=== PATIENT | female | born 1945 | race Caucasian/White ===

== ENCOUNTER 2019-02-26 12:21 | Emergency (ER) | payer MEDICARE, OTHER ==
[~2019-02-26] VITALS: Ht 162.6 cm; Wt 59.0 kg
--- NOTE | 2019-02-26 12:41 | ED Upper Extremity ---
General Chief Complaint: Laceration Stated Complaint: RT ARM INJURY - SCRAPPED SKIN OFF THE TOP OF ARM Nursing Triage Note: ARRIVED VIA AMB TO ROOM 02. STATES SHE SCRAPED HER ARM ABOUT 2 HOURS AGO CAUSING A LARGE SKIN TEAR. Nursing Sepsis Screen: No Definite Risk Source: patient Exam Limitations: no limitations History of Present Illness Date Seen by Provider: Feb 26, 2019 Time Seen by Provider: 12:38 Initial Comments Patient scraped her left forearm against a rail this morning around 10 a.m. She sustained a skin tear. She called her daughter and bandaged it but daughter thought it needed to be evaluated because it was large. Allergies and Home Medications Allergies Uncoded Allergies: ALL PAIN MEDS (Allergy, Unknown, 02/26/19) Patient Home Medication List Home Medication List Reviewed: Yes Review of Systems Constitutional: no symptoms reported Respiratory: short of breath Cardiovascular: no symptoms reported Skin: see HPI All Other Systems Reviewed Negative Unless Noted: Yes Past Lcysqjf-Ldbmuu-Bjagsr Hx Patient Social History Recent Foreign Travel: No Contact w/Someone Who Travel: No Recent Infectious Disease Expo: No Physical Exam Vital Signs Vital Signs - First Documented 02/26/19 12:25 Temp 98.0 Pulse 78 Resp 16 B/P (MAP) 156/104 (121) Pulse Ox 93 O2 Delivery Room Air Capillary Refill : Less Than 3 Seconds Height, Weight, BMI Height: 5'4.00" Weight: 130lbs. oz. 58.975776az; BMI Method:Stated General Appearance: WD/WN, no apparent distress Neck: supple Cardiovascular: regular rate, rhythm Respiratory: decreased breath sounds Elbow/Forearm: ecchymosis (there is a large skin tear over the dorsal aspect of the left mid forearm. It measures about 7 cm long.) Progress/Results/Core Measures Results/Orders My Orders Orders - IQRA HULL MD Wound Dressing-Ed (02/26/19 12:42) Vital Signs/I&O 02/26/19 12:25 Temp 98.0 Pulse 78 Resp 16 B/P (MAP) 156/104 (121) Pulse Ox 93 O2 Delivery Room Air Blood Pressure Mean: 121 Departure Impression Primary Impression: Skin tear of forearm without complication Disposition: 01 HOME, SELF-CARE Condition: Stable Departure-Patient Inst. Decision time for Depature: 12:41 Referrals: [facility] (PCP/Family) Primary Care Physician Patient Instructions: SKIN AVULSION Add. Discharge Instructions: Keep bandage on for the next 4-5 days. Keep arm elevated as much as possible. All discharge instructions reviewed with patient and/or family. Voiced understanding. IQRA HULL MD Feb 26, 2019 12:41
[2019-02-26 13:20] VITALS: BP 163/61
--- NOTE | 2019-02-26 13:20 | NUR ---
Consent signed for Tdap injection.
[2019-02-26] MEDS ORDERED: TETANUS,DIPTH,PERTUSS P/F (BOOSTRIX) 0.5 ML VIAL IM ONE (13:30)
== END 2019-02-26 13:20 | disposition home or self-care (01) ==
LOC: EDUNIT# 12:21 → ER FS 12:23
DX: S51.812A Laceration without foreign body of left forearm, initial encounter (principal); Z88.8 Allergy status to other drugs, medicaments and biological substances; W22.09XA Striking against other stationary object, initial encounter
CPT/HCPCS: 90715; 99284

== ENCOUNTER → 2021-02-21 | Outpatient (CLI) | payer MEDICARE ==
--- NOTE | 2021-02-21 17:53 | Diagnostic Imaging Report ---
INDICATION: Right foot, pain. EXAMINATION: Three views were obtained. FINDINGS: The alignment is normal. There is no fracture or dislocation. There is no radiographic evidence of osteomyelitis. There appears to be some soft tissue swelling along the ball of foot. IMPRESSION: Soft tissue swelling, however, no radiographic evidence of osteomyelitis. Dictated by: Dictated on workstation # [id number]
== END ==
LOC: RAD FS 14:18
PROVIDERS: ATTEND Family Medicine
DX: L97.511 Non-pressure chronic ulcer of other part of right foot limited to breakdown of skin (principal)
CPT/HCPCS: 73630

== ENCOUNTER → 2021-02-28 | Outpatient (CLI) | payer MEDICARE | LOC: WOUNDCARE 10:03 | PROVIDERS: ATTEND Orthopaedic Surgery Hand Surgery | DX: I96 Gangrene, not elsewhere classified (principal); L97.512 Non-pressure chronic ulcer of other part of right foot with fat layer exposed; L97.522 Non-pressure chronic ulcer of other part of left foot with fat layer exposed; F17.218 Nicotine dependence, cigarettes, with other nicotine-induced disorders | CPT/HCPCS: 99215 ==

== ENCOUNTER → 2021-03-13 | Outpatient (CLI) | payer MEDICARE | LOC: WOUNDCARE 10:37 | PROVIDERS: ATTEND Surgery | DX: L97.512 Non-pressure chronic ulcer of other part of right foot with fat layer exposed (principal); L97.522 Non-pressure chronic ulcer of other part of left foot with fat layer exposed; I70.235 Atherosclerosis of native arteries of right leg with ulceration of other part of foot; T65.222A Toxic effect of tobacco cigarettes, intentional self-harm, initial encounter; L03.115 Cellulitis of right lower limb; I96 Gangrene, not elsewhere classified; F17.218 Nicotine dependence, cigarettes, with other nicotine-induced disorders | CPT/HCPCS: 99214 ==

== ENCOUNTER → 2021-03-19 | Outpatient (CLI) | payer MEDICARE ==
[~2021-03-19] MED LIST: CATHETER FLUSH 10 ML SYR IV PRN; HOLD METFORMIN - RECEIVED CONTRAST 20 ML VIAL IV SCH; IOHEXOL 350 MG/ML 100 ML (OMNIPAQUE 350) VIAL IV ONE; NS 100 ML (IVPB) BAG IV ONE
--- NOTE | 2021-03-19 21:13 | Diagnostic Imaging Report ---
INDICATION: Peripheral vascular disease, right foot wound. CTA of the aorta and pelvis and lower extremities was performed with IV contrast bolus and axial slices and 3-D reconstructions. Dose reduction protocol was used. Visualized portions of the lung bases are clear. There were no pleural fluid collections. There is no free intraperitoneal air. The liver shows diffuse fatty infiltration with no focal lesion. The patient has had a prior cholecystectomy. The spleen, adrenals, and pancreas appear normal. The kidneys bilaterally showed no hydronephrosis. There is no retroperitoneal mass or adenopathy. There is no ascites or abnormal fluid collection. Visualized bowel loops are not obstructed. There is no soft tissue mass or hematoma in the lower extremities. CTA images demonstrate the abdominal aorta to be diffusely atherosclerotic with diffuse calcific plaquing. The celiac trunk is patent and without stenosis. The SMA shows a focal stenosis of about 70% proximally, and then the SMA trunk shows diffuse plaquing. The renal arteries bilaterally are patent, there is high-grade stenosis of the origin of the right renal artery and moderate to severe stenosis of the left renal artery. The inferior mesenteric artery is occluded. There is severe plaquing at the aortic bifurcation with bilateral common iliac artery origin high-grade stenosis. The common iliac arteries throughout the remainder of their course show moderate plaquing. There is a stent in place at the right distal common iliac artery and proximal external iliac artery. The external iliac artery on the right side shows diffuse marked disease, the left external iliac artery shows diffuse plaquing with long segment 50% narrowing. The internal iliac arteries are occluded on both sides and then refill from collaterals. The common femoral arteries on both sides show moderate plaquing but are patent. The profunda femoris artery is patent on each side. The right SFA is occluded proximally, distal right SFA stent is occluded. There is some collateral refilling at the popliteal artery which is diffusely small in disease. The left SFA is diffusely somewhat small with diffuse plaquing. The left popliteal artery shows diffuse high-grade plaquing with focal stenosis above the knee which appears significant. Right popliteal artery is patent. The right anterior tibial artery and peroneal artery are patent, the right posterior tibial artery appears to occlude proximally. The left peroneal artery is patent. The anterior tibial artery and posterior tibial artery appear to be intermittently occluded, distal imaging is limited by dilution. IMPRESSION: Extensive peripheral vascular disease with multilevel disease as described above. Consider angiography if clinically warranted. Dictated by: Dictated on workstation # [id number]
== END ==
LOC: RAD 15:20
PROVIDERS: ATTEND Surgery
DX: I70.235 Atherosclerosis of native arteries of right leg with ulceration of other part of foot (principal); I70.1 Atherosclerosis of renal artery; I70.8 Atherosclerosis of other arteries; K76.0 Fatty (change of) liver, not elsewhere classified
CPT/HCPCS: 75635

== ENCOUNTER → 2021-03-19 | Outpatient (CLI) | payer MEDICARE | LOC: WOUNDCARE 14:29 | PROVIDERS: ATTEND Surgery | DX: L97.512 Non-pressure chronic ulcer of other part of right foot with fat layer exposed (principal); L97.522 Non-pressure chronic ulcer of other part of left foot with fat layer exposed; I70.235 Atherosclerosis of native arteries of right leg with ulceration of other part of foot; T65.222A Toxic effect of tobacco cigarettes, intentional self-harm, initial encounter; L03.115 Cellulitis of right lower limb; I96 Gangrene, not elsewhere classified; F17.218 Nicotine dependence, cigarettes, with other nicotine-induced disorders | CPT/HCPCS: 99214 ==

== ENCOUNTER 2021-06-25 10:00 | Inpatient (IN) | payer MEDICARE ==
[~2021-06-25] VITALS: Ht 152.4 cm; Wt 55.6 kg
[2021-06-25] MEDS ORDERED: LEVO125T6 PO (10:35)
[2021-06-25] MEDS ORDERED: AMLO-250 PO (10:35)
[2021-06-25] MEDS ORDERED: IBUP-2473 PO (10:35)
[2021-06-25] MEDS ORDERED: PRD20T PO (10:35)
[2021-06-25] MEDS ORDERED: METO50TA15 PO (10:35)
[2021-06-25] MEDS ORDERED: CEFP200T2 PO (10:35)
[2021-06-25] MEDS ORDERED: APIX2.5T PO (10:35)
[2021-06-25] MEDS ORDERED: ALPR1TAB7 PO (10:35)
[2021-06-25] MEDS ORDERED: MUPI22OI2 TP (10:35)
[2021-06-25] MEDS ORDERED: FURO40TA4 PO (10:35)
[2021-06-25] MEDS ORDERED: CLOP75TA69 PO (10:35)
[2021-06-25] MEDS ORDERED: MTC10T PO (10:35)
[2021-06-25] MEDS ORDERED: LOSA25TA41 PO (10:35)
[2021-06-25] MEDS ORDERED: CALCIUM CARBONATE 500 MG (TUMS) TAB.CHEW PO PRN (17:15)
[2021-06-25] MEDS ORDERED: ALPRAZolam 0.25 MG (XANAX) TAB PO PRN (17:15)
[2021-06-25] MEDS ORDERED: LOPERAMIDE 2 MG (IMODIUM) TABLET PO PRN (17:15)
[2021-06-25] MEDS ORDERED: MELATONIN 3 MG TABLET PO PRN (17:15)
[2021-06-25] MEDS ORDERED: ACETAMINOPHEN 325 MG TABLET PO PRN (17:15)
[2021-06-25] MEDS ORDERED: LACTULOSE SYRUP 10GM/15ML (ENULOSE) 30ML UDC PO PRN (17:15)
[2021-06-25] MEDS ORDERED: DOCUSATE SODIUM 100 MG (COLACE) CAP PO PRN (17:15)
[2021-06-25] MEDS ORDERED: FLEET ENEMA ADULT 1 EA BTL PR PRN (17:15)
[2021-06-25] MEDS ORDERED: ONDANSETRON 4 MG (ZOFRAN) ORAL DISSOLVE TAB PO PRN (17:15)
[2021-06-25] MEDS ORDERED: NALOXONE 0.4 MG/ML 1 ML (NARCAN) VIAL IV PRN (17:15)
[2021-06-25] MEDS ORDERED: BISACODYL 10 MG SUPP (DULCOLAX) PR PRN (17:15)
[2021-06-25] MEDS ORDERED: guaiFENesin/CODEINE (ROBITUSSIN AC) 10ML UDC PO PRN (17:15)
[2021-06-25] MEDS ORDERED: diphenhydrAMINE 25 MG TAB (BENADRYL) PO PRN (17:15)
[2021-06-25 17:30] VITALS: BP 120/58
[2021-06-25] MEDS ORDERED: METOCLOPRAMIDE 10 MG (REGLAN) TAB PO PRN (18:15)
[2021-06-25] MEDS ORDERED: ALPRAZolam 1 MG (XANAX) TAB PO PRN ×2 (18:15→21:00)
[2021-06-25] MEDS: polyethylene glycoL POWDER 17 GM (MIRALAX) PACK PO SCH (19:50)
[2021-06-25 20:00] VITALS: BP 133/79
[2021-06-25] MEDS: RT-ALBUTEROL/IPRATROPIUM 3 ML (DUONEB) VIAL INH SCH (21:12)
--- NOTE | 2021-06-25 21:35 | PM&R Post Admission Assessment ---
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 On 06/18/21 CXR showed no air space opacity or effusion. Renal ultrasound showed 60% stenosis of the left renal artery with elevated velocity of 255. Overall she is here for severe disability and will regain function in order to return to independent living. Past Ylrpukg-Xeuzpj-Wknelq Hx Past Med/Social Hx: Reviewed Nursing Past Med/Soc Hx, Reviewed and Corrections made Patient Social History Marrital Status: single Employed/Student: retired Alcohol Use: Regular Use Smoking Status: Current Everyday Smoker Recent Hopitalizations: No Immunizations Up To Date Tetanus Booster (TDap): Less than 5yrs Seasonal Allergies Seasonal Allergies: No Past Medical History Surgeries: Gallbladder Respiratory: COPD, Pneumonia Cardiac: Hypertension Neurological: Neuropathy Restless leg syndrome Gastrointestinal: Gastroesophageal Reflux Musculoskeletal: Arthritis Endocrine: Hypothyroidsim Cancer: Breast PM&R Allergy/Meds/Data Review Allergies Uncoded Allergies: ALL PAIN MEDS (Allergy, Unknown, 02/26/19) Current Medications Current Medications Reviewed Laboratory Data Reviewed Review of Systems Constitutional: see HPI, malaise, weakness EENTM: no symptoms reported Respiratory: dyspnea on exertion, short of breath Cardiovascular: no symptoms reported Gastrointestinal: no symptoms reported Genitourinary: no symptoms reported Musculoskeletal: no symptoms reported Skin: no symptoms reported Psychiatric/Neurological: Depressed All Other Systems Reviewed Negative Unless Noted: Yes Physical Exam Physical Exam Vital Signs Vital Signs - First Documented 06/25/21 17:30 Temp 36.0 Pulse 97 Resp 20 B/P (MAP) 120/58 (78) Pulse Ox 96 O2 Delivery Nasal Cannula O2 Flow Rate 3.00 Capillary Refill : Height, Weight, BMI Height: 5'4.00" Weight: 130lbs. oz. 58.172848wa; 23.33 BMI Method:Stated General Appearance: No Apparent Distress, WD/WN, Chronically ill, Other (Sleepy) Eyes: Bilateral Eye Normal Inspection, Bilateral Eye PERRL HEENT: PERRL/EOMI, Normal ENT Inspection, Pharynx Normal Neck: Full Range of Motion, Normal Inspection, Non Tender, Supple, Carotid Bruit Respiratory: Chest Non Tender, No Accessory Muscle Use, No Respiratory Distress, Decreased Breath Sounds, Wheezing Cardiovascular: Regular Rate, Rhythm, No Edema, No Gallop, No JVD, No Murmur, Normal Peripheral Pulses Gastrointestinal: Normal Bowel Sounds, No Organomegaly, No Pulsatile Mass, Non Tender, Soft Back: Normal Inspection, No CVA Tenderness, No Vertebral Tenderness Extremity: Normal Capillary Refill, Normal Inspection, Normal Range of Motion, Non Tender, No Calf Tenderness, No Pedal Edema Neurologic/Psychiatric: Alert, Oriented x3, No Motor/Sensory Deficits, Abnormal Gait, Depressed Affect Skin: Normal Color, Warm/Dry Lymphatic: No Adenopathy PM&R Medical Assessment & Plan REHAB/MEDICAL ASSESSMENT AND PLAN: REHAB IMPAIRMENT GROUP: COPD myopathy ETIOLOGIC DIAGNOSIS: COPD myopathy The comorbidities that impact the patients function and/or functional outcome by: Advanced age, alcoholism, current smoker, anxiety, fall risk REHAB PLAN: The patient is being admitted to our comprehensive inpatient rehabilitation facility and can tolerate the intensity of service consisting of at least: 180 minutes of therapy a day, 5 out of 7 days a week Rehab treatment will consist of: PT and OT will focus on regaining enough function to return to independent living along with increasing independence in ADLs The patient/family has a good understanding of our discharge process and will benefit from an interdisciplinary inpatient rehabilitation program. The patient has potential to make improvement and is in need of at least two of the following multidisciplinary therapies including but not limited to physical, occupational, speech, and prosthetics and orthotics. Additionally the patient will need services from respiratory, nutritional services, wound care, psychology, etc. (Customize this to each patient). Given the patients complex condition and risk of further medical complications, rehabilitation services cannot be safely or effectively provided at a lower level of care such as a fdc facility. BARRIERS TO DISCHARGE: Alcoholism ESTIMATED LOS: 7 days DISPOSITION: Home RELEVANT CHANGES SINCE PREADMISSION SCREENING: I have compared the patients medical and functional status at the time of the preadmission screening and there are: No changes PROGNOSIS: Good REHABILITATION GOALS: 1. PT and OT will focus on regaining enough function to return to independent living along with increasing independence in ADLs All the above goals were reviewed with the patient and he/she is in agreement. By signing this document, I acknowledge that I have personally performed a full physical examination on this patient within 24 hours of admission to this inpatient rehabilitation facility and have determined the patient to be able to tolerate the above course of treatment at an intensive level for a reasonable period of time. I will be completing a detailed individualized Plan of Care for this patient by day #4 of the patients stay based upon the Preadmission Screen, the Post-Admission Evaluation, and the therapy evaluations. Admission Dx/Comorbidities: (1) COPD (chronic obstructive pulmonary disease) ICD Codes: J44.9 - Chronic obstructive pulmonary disease, unspecified Assessment/Plan Assessment and Plan Assess & Plan/Chief Complaint Assessment: COPD myopathy Alcoholism Altered mental status Anxiety CAD Current smoking Hypertension Current hypoxia requiring supplemental oxygen PVD Urinary incontinence Breast cancer history Restless leg syndrome Neuropathy Chronic constipation Chronic diarrhea Hypothyroidism Renal artery stenosis Plan: Aggressive therapy Nicotine patch Supportive care SANJAY GARCIA DO Jun 25, 2021 21:35
[2021-06-25] MEDS: SENNA W/DOCUSATE (SENOKOT S) TABLET PO SCH (21:54)
[2021-06-25] MEDS: APIXABAN 2.5 MG (ELIQUIS) TABLET PO SCH (21:54)
[2021-06-25] MEDS: meTOprolol TARTRATE 50 MG (LOPRESSOR) TAB PO SCH (21:54)
[2021-06-25] MEDS: DOCUSATE SODIUM 100 MG (COLACE) CAP PO SCH (21:54)
[2021-06-25] MEDS: MUPIROCIN 2% OINT 22 GM (BACTROBAN) TUBE TOP SCH (21:54)
[2021-06-25] MEDS: CEFDINIR 300 MG (OMNICEF) CAP PO SCH (21:54)
[2021-06-25] MEDS: amLODIPine 5 MG (NORVASC) TAB PO SCH (21:54)
--- NOTE | 2021-06-26 06:25 | PM&R Progress Note ---
Subjective HPI/CC On Admission Date Seen by Provider: Jun 26, 2021 Objective Exam Vital Signs Vital Signs Date Time Temp Pulse Resp B/P (MAP) Pulse Ox O2 Delivery O2 Flow Rate FiO2 06/26/21 11:38 25.00 06/26/21 09:09 100 Nasal Cannula 06/26/21 07:45 36.2 83 26 148/65 (92) Capillary Refill : General Appearance: No Apparent Distress, WD/WN, Chronically ill, Other (Sleepy) HEENT: PERRL/EOMI, Normal ENT Inspection, Pharynx Normal Neck: Full Range of Motion, Normal Inspection, Non Tender, Supple, Carotid Bruit Respiratory: Chest Non Tender, No Accessory Muscle Use, No Respiratory D istress, Decreased Breath Sounds, Wheezing Cardiovascular: Regular Rate, Rhythm, No Edema, No Gallop, No JVD, No Murmur, Normal Peripheral Pulses Gastrointestinal: Normal Bowel Sounds, No Organomegaly, No Pulsatile Mass, Non Tender, Soft Back: Normal Inspection, No CVA Tenderness, No Vertebral Tenderness Extremity: Normal Capillary Refill, Normal Inspection, Normal Range of Motion, Non Tender, No Calf Tenderness, No Pedal Edema Neurologic/Psychiatric: Alert, Oriented x3, No Motor/Sensory Deficits, Abnormal Gait, Depressed Affect Skin: Normal Color, Warm/Dry Lymphatic: No Adenopathy Results/Procedures Lab Laboratory Tests 06/26/21 06:17 Patient resulted labs reviewed. [facility] Transfers Therapy Code Descriptions/Definitions Functional [place] Measure: 0=Not Assessed/NA 4=Minimal Assistance 1=Total Assistance 5=Supervision or Setup 2=Maximal Assistance 6=Modified [place] 3=Moderate Assistance 7=Complete IndependenceSCALE: Activities may be completed with or without assistive devices. 4-Wcnhzyxdhv-ucfilfc completes the activity by him/herself with no assistance from a helper. 5-Set-up or Clean-up Assistance-helper sets up or cleans up; patient completes activity. [place] assists only prior to or following the activity. 4-Supervision or Touching Assistance-helper provides verbal cues and/or touching/steadying and/or contact guard assistance as patient completes activity. Assistance may be provided throughout the activity or intermittently. 3-Partial/Moderate Assistance-helper does LESS THAN HALF the effort. [place] lifts, holds or supports trunk or limbs, but provides less than half the effort. 2-Substantial/Maximal Assistance-helper does MORE THAN HALF the effort. [place] lifts or holds trunk or limbs and provides more than half the effort. 2-Xtqulqfrj-smowvn does ALL the effort. Patient does none of the effort to complete the activity. Or, the assistance of 2 or more helpers is required for the patient to complete the activity. If activity was not attempted, code reason: 7-Patient Refused. 9-Not Applicable-not attempted and the patient did not perform the activity before the current illness, exacerbation or injury. 10-Not Attempted due to Environmental Limitations-(lack of equipment, weather restraints, etc.). 88-Not Attempted due to Medical Conditions or Safety Concerns. Assessment/Plan Assessment and Plan Assess & Plan/Chief Complaint Assessment: COPD myopathy Alcoholism Altered mental status Anxiety CAD Current smoking Hypertension Current hypoxia requiring supplemental oxygen PVD Urinary incontinence Breast cancer history Restless leg syndrome Neuropathy Chronic constipation Chronic diarrhea Hypothyroidism Renal artery stenosis Plan: Aggressive therapy Nicotine patch Supportive care (1) COPD (chronic obstructive pulmonary disease) SANJAY GARCIA DO Jun 26, 2021 06:25
[2021-06-26] MEDS ORDERED: LEVOTHYROXINE 125 MCG (LEVOTHROID) TABLET PO SCH (06:30)
[2021-06-26 06:38] LABS: BASOPHILS % (AUTO) 0 % (0-10); EOSINOPHILS % (AUTO) 0 % (0-10); HEMATOCRIT 36 % (35-52); HEMOGLOBIN 10.8 g/dL (11.5-16.0); LYMPHOCYTES # (AUTO) 1.2 10^3/uL (1.0-4.0); LYMPHOCYTES % (AUTO) 8 % (12-44); MEAN CORPUSCULAR HEMOGLOBIN 31 pg (25-34); MEAN CORPUSCULAR HGB CONC 30 g/dL (32-36); MEAN CORPUSCULAR VOLUME 104 fL (80-99); MEAN PLATELET VOLUME 12.8 fL (9.0-12.2); MONOCYTES # (AUTO) 1.4 10^3/uL (0.0-1.0); MONOCYTES % (AUTO) 9 % (0-12); NEUTROPHILS # (AUTO) 12.8 10^3/uL (1.8-7.8); NEUTROPHILS % (AUTO) 81 % (42-75); PLATELET COUNT 185 10^3/uL (130-400); WHITE BLOOD COUNT 15.9 10^3/uL (4.3-11.0)
[2021-06-26 06:50] LABS: ALBUMIN 3.5 GM/DL (3.2-4.5); POTASSIUM 3.5 MMOL/L (3.6-5.0)
[2021-06-26 06:51] LABS: CALCIUM 9.4 MG/DL (8.5-10.1)
[2021-06-26 06:52] LABS: TOTAL PROTEIN 5.8 GM/DL (6.4-8.2)
[2021-06-26 06:54] LABS: BILIRUBIN,TOTAL 0.4 MG/DL (0.1-1.0)
[2021-06-26 06:56] LABS: CREATININE SERUM 0.71 MG/DL (0.60-1.30)
[2021-06-26] MEDS ORDERED: predniSONE 20 MG TAB PO SCH (07:00)
[2021-06-26 07:45] VITALS: BP 148/65
[2021-06-26 07:59] LABS: EOSINOPHILS % (MANUAL) 1 %; LYMPHOCYTES % (MANUAL) 11 %; MONOCYTES % (MANUAL) 6 %; NEUTROPHILS % (MANUAL) 82 %
[2021-06-26 08:00] LABS: STOMATOCYTES MODERATE
--- NOTE | 2021-06-26 08:19 | ST Cognitive Linguistic Eval ---
Speech Evaluation-General Medical Diagnosis COPD Myopathy, AMS Onset Date: Jun 26, 2021 Therapy Diagnosis Therapy Diagnosis: Cognitive-communication Precautions Precautions/Isolations: Fall Prevention, Standard Precautions Referral Referring Physician: Dr. Anderson Medical History Pertinent Medical History: Alcoholism, COPD Reviewed History: Yes Social History Current Living Status: Other Family (Patient states she lives with her daughter) Speech PLF-Current Status Prior Level of Function Patient states she lives in [facility] with her daughter who assists her with her daily needs. Subjective Patient presents with a flat affect and just states she wants to be anywhere but here. She was cooperative with the cognitive assessment. Patient states she is here following surgery with four stents placed. Language Eval: Auditory Comprehends Simple Yes/No Ques: Functional Indent/Objects Multiple Vang: Functional Ident/Pics in Multiple Vang: Functional Follows 1-Step Commands: Functional Follows Complex Directions: Mild Follows General Conversations: Mild Language Eval: Verbal Language Completes Spontaneous Greeting: Functional Produces Auto, Serial Info: Functional Imitates Simple Words/Phrases: Functional Word Finding: Mild Requests Basic Needs: Functional States Basic Personal Info: Mild Expresses Complex Ideas: Moderate Objective Cognitive Domain Attention: Moderate Memory: Moderate Problem Solving: Moderate Executive Functions: Moderate Visuospatial Skills: WNL Composite Severity Rating: Moderate Clock Drawing Severity Rating: Moderate Objective Formal/Standardized Tests [facility] Mental Status ([facility]) Results 18/30, Moderate Dementia range of function Oral Motor/Speech Production Within Normal Limits Impression Patient is a 76 y/o female who was admitted to the ARU due to severe disability and COPD myopathy. The patient presents with a flat affect and states she does not want to be here. She completed the UMS at bedside with a score of 18/30 obtained. This score is within the moderate dementia range of function. The patient's score is indicative of needing further ST services with focus on improving cognitive level of function and safety awareness. Speech Patient Assess Expression of Ideas/Wants: Frequently (2) Understanding Verbal Content: Sometimes Understands(2) Brief Interview-Mental Status: Yes Repetition of Three Words: One (1) Temporal Orientation: Year: Missed by 2-5 years (1) Temporal Orientation: Month: Missed by 6 days-1 month (1) Temporal Orientation: Day: Incorrect or No Answer(0) Recall : Wear to say "Sock": No, could not recall (0) Recall : Color: No, could not recall (0) Recall : Bed: No, could not recall (0) Memory/Recall Ability: Current season, That he or she is in a hsp/hsp unit Speech Short Term Goals Short Term Goals Short Term Goals 1) Patient will complete memory tasks related to her daily needs at 75% with minimal cues. 2) Patient will complete safety awareness tasks related to her daily needs at 75% with minimal cues. 3) Patient will complete tasks problem solving related to her daily needs at 75% with minimal cues. Speech Half-Way Goals Half-Way Goals Patient will improve cognitive-communication abilities so that she may require decreased assist for daily tasks. Speech-Plan Patient/Family Goals Patient/Family Goals: Patient plans on returning to her home where she lives with her daughter. Treatment Plan Speech Therapy Treatment Plan: Continue Plan of Care Treatment Duration: Jul 12, 2021 Frequency: 4 times per week (Patient will receive skilled ST 4-5x per week) Estimated Hrs Per Day: .5 hour per day Rehab Potential: Fair Barriers to Learning: Patient's medical status, moderate cognitive deficits Pt/Family Agrees to Plan: Yes Safety Risks/Education Teaching Recipient: Patient Teaching Methods: Discussion Response to Teaching: Verbalize Understanding, Reinforcement Needed Education Topics Provided: Safety within her room, communication of wants/needs, utilization of call light Time Speech Therapy Time In: 08:00 Speech Therapy Time Out: 08:30 Total Billed Time: 30 Billed Treatment Time 1, LAMBERTO RITTER [address] Jun 26, 2021 08:19
[2021-06-26] MEDS: polyethylene glycoL POWDER 17 GM (MIRALAX) PACK PO SCH (08:27)
[2021-06-26] MEDS: meTOprolol TARTRATE 50 MG (LOPRESSOR) TAB PO SCH (08:27)
[2021-06-26] MEDS: SENNA W/DOCUSATE (SENOKOT S) TABLET PO SCH (08:27)
[2021-06-26] MEDS: amLODIPine 5 MG (NORVASC) TAB PO SCH (08:27)
[2021-06-26] MEDS: APIXABAN 2.5 MG (ELIQUIS) TABLET PO SCH (08:27)
[2021-06-26] MEDS: CEFDINIR 300 MG (OMNICEF) CAP PO SCH (08:27)
[2021-06-26] MEDS: DOCUSATE SODIUM 100 MG (COLACE) CAP PO SCH (08:27)
[2021-06-26] MEDS: MUPIROCIN 2% OINT 22 GM (BACTROBAN) TUBE TOP SCH (08:28)
[2021-06-26] MEDS: RT-ALBUTEROL/IPRATROPIUM 3 ML (DUONEB) VIAL INH SCH (08:46)
[2021-06-26] MEDS ORDERED: LOSARTAN 25 MG (COZAAR) TAB PO SCH (09:00)
[2021-06-26] MEDS ORDERED: CLOPIDOGREL 75 MG (PLAVIX) TABLET PO SCH (09:00)
[2021-06-26] MEDS ORDERED: NICOTINE 21 MG (NICODERM) PATCH TD SCH (09:00)
[2021-06-26] MEDS ORDERED: FUROSEMIDE 40 MG (LASIX) TAB PO SCH (09:00)
--- NOTE | 2021-06-26 10:22 | Physical Therapy Evaluation ---
PT Evaluation-General Medical Diagnosis Admission Date Jun 25, 2021 at 17:20 Medical Diagnosis: COPD myopathy Onset Date: Jun 26, 2021 Therapy Diagnosis Therapy Diagnosis: impaired mobility, strength, endurance Height/Weight Height (Feet): 5 Height (Inches): 4.00 Weight (Pounds): 130 Precautions Precautions/Isolations: Fall Prevention, Standard Precautions Referral Physician: Trice Anderson DO Medical History Pertinent Medical History: Alcoholism, COPD Reviewed History: Yes Social History Current Living Status: Other Family (Patient states she lives with her daughter) Entry Into Home: Stairs Without Railing PT Steps Into Home: 2 Prior Prior Level of Function SCALE: Activities may be completed with or without assistive devices. 4-Ammadrilwt-uvbdqae completes the activity by him/herself with no assistance from a helper. 5-Set-up or Clean-up Assistance-helper sets up or cleans up; patient completes activity. [place] assists only prior to or following the activity. 4-Supervision or Touching Assistance-helper provides verbal cues and/or touching/steadying and/or contact guard assistance as patient completes activity. Assistance may be provided throughout the activity or intermittently. 3-Partial/Moderate Assistance-helper does LESS THAN HALF the effort. [place] lifts, holds or supports trunk or limbs, but provides less than half the effort. 2-Substantial/Maximal Assistance-helper does MORE THAN HALF the effort. [place] lifts or holds trunk or limbs and provides more than half the effort. 6-Chgcvvncm-nqgszg does ALL the effort. Patient does none of the effort to complete the activity. Or, the assistance of 2 or more helpers is required for the patient to complete the activity. If activity was not attempted, code reason: 7-Patient Refused. 9-Not Applicable-not attempted and the patient did not perform the activity be fore the current illness, exacerbation or injury. 10-Not Attempted due to Environmental Limitations-(lack of equipment, weather restraints, etc.). 88-Not Attempted due to Medical Conditions or Safety Concerns. Bed Mobility: 6 Transfers (B,C,W/C): 6 Gait: 6 Stairs: 6 Indoor Mobility (Ambulation): Independent Stairs: Independent Prior Devices Use: Walker PT Evaluation-Current Subjective Patient in bed pre tx, agrees to PT, has 10/10 pain in feet. Pt/Family Goals "to move around" Objective Patient Orientation: Person, Confused, Unable to Assess, Mumbles Attachments: Oxygen ROM/Strength ROM Lower Extremities WNL Strength Lower Extremities Patient cannot follow directions for MMT but appears to have at least 3/5 strength in both legs grossly Sensory Hearing: Functional Sensation Right Lower Extremit: Intact Sensation Left Lower Extremity: Intact Transfers Roll Left & Right (QC): 1 Sit to Lying (QC): 1 Lying to Sitting/Side of Bed(Q: 1 Sit to Stand (QC): 2 Chair/Uxi-he-Izgla Xfer(QC): 2 Toilet Transfer (QC): 2 Car Transfer (QC): 1 Patient performs bed mobility with dependence, supine <-> sit dependent, sit <-> stand max assist, transfers max assist, car transfer dependent. Patient needs cues for positioning every time she moves, doesn't initiate movement herself. Gait Does the Patient Walk?: Yes Mode of Locomotion: Walk Anticipated Mode of Locomotion: Walk Walk 10 feet (QC): 88 Walk 50 ft with 2 Turns(QC): 88 Walk 150 ft (QC): 88 Walking 10ft/uneven surface-QC: 88 Distance: 6'x3 Gait Assistive Device: Parallel Bars Comments/Gait Description Patient can ambulate 6' in the parallel bars with min assist for balance. She ambulates extremely slowly, steps only a couple of inches at a time. Wheelchair Training Does the Pt Use a Wheelchair?: Yes Distance: 150'x2 Wheel 50 ft with 2 turns (QC): 2 Wheel 150 ft (QC): 2 Type of Wheelchair: Manual Patient will attempt to use her arms on the wheels but gives up after a couple of feet and needs cues to stay on task. Stairs 1 Step (curb) (QC): 88 4 Steps (QC): 88 12 Steps (QC): 88 Balance Sitting Static: Fair Sitting Dynamic: Poor Standing Static: Poor Standing Dynamic: Poor Picking up an Object (QC): 88 Treatment Attempted seated LE exercises but patient would not participate. Assessment/Needs Patient has impaired mobility, strength, endurance. Patient in recliner post tx with nurse call, phone, tray, chair alarm on. Patient is dependent to max a ssist for bed mobility and transfers. Patient has little to no motivation, will not initiate movement. Stares ahead blankly most of the time. Doesn't initiate talking. Randomly asks for help but then doesn't know what she needs help with. Rehab Potential: Poor PT Short Term Goals Short Term Goals Time Frame: Jul 03, 2021 Roll Left & Right: 2 Sit to lyin Lying to sitting on side of be: 2 Sit to stand: 3 Chair/sct-lf-lrbrd transfer: 3 Walk 10 feet: 3 PT Nursing Home Goals Nursing Home Goals PT [facility] Goals Time Frame: Jul 17, 2021 Roll Left & Right (QC): 3 Sit to Lying (QC): 3 Lying-Sitting on Side/Bed(QC): 3 Sit to Stand (QC): 4 Chair/Oll-tc-Dmvwb Xfer(QC): 4 Toilet Transfer (QC): 4 Car Transfer (QC): 3 Does the Patient Walk: Yes Walk 10 feet (QC): 4 Walk 50ft with 2 Turns (QC): 4 Walk 150 ft (QC): 88 Walking 10ft on Uneven Surface: 4 1 Step (curb) (QC): 3 4 Steps (QC): 3 12 Steps (QC): 88 Picking up an Object (QC): 88 Wheel 50 feet with 2 turns (QC: 4 Wheel 150 feet: 4 PT Plan Problem List Problem List: Activity Tolerance, Functional Strength, Safety, Balance, Gait, Transfer, Bed Mobility, ROM Treatment/Plan Treatment Plan: Continue Plan of Care Treatment Plan: Bed Mobility, Education, Functional Activity Juan, Functional Strength, Group Therapy, Gait, Safety, Therapeutic Exercise, Transfers Treatment Duration: Jul 17, 2021 Frequency: At least 5 of 7 days/Wk (IRF) Estimated Hrs Per Day: 1.5 hours per day Patient and/or Family Agrees t: Yes Safety Risks/Education Patient Education: Gait Training, Transfer Techniques, Correct Positioning, W/C Management, Safety Issues Teaching Recipient: Patient Teaching Methods: Demonstration, Discussion Response to Teaching: Reinforcement Needed Discharge Recommendations Plan Patient will perform bed mobility and transfer training, balance and endurance training, functional strengthening, stair training, gait training, and education, to improve functional mobility and independence at home. Therapy Discharge Recommendati: 24 Hour Supervision, Post Acute PT Time/GCodes Time In: 0900 Time Out: 1000 Total Billed Treatment Time: 60 Total Billed Treatment 1 visit EVM 30' FA 30' CRISTINA GOMES PT Jun 26, 2021 10:22
--- NOTE | 2021-06-26 10:28 | Diagnostic Imaging Report ---
INDICATION: Shortness of breath. TIME OF EXAM: 10:10 AM. COMPARISON: No prior studies are available for comparison. FINDINGS: The heart size is normal. There are surgical clips in the right axilla. The lungs are clear. No infiltrates are seen. There is no effusion or pneumothorax. IMPRESSION: No acute cardiopulmonary process is detected. Dictated by: Dictated on workstation # [id number]
[2021-06-26 11:01] LABS: ABG BASE EXCESS 16.5 MMOL/L (-2.5-2.5); ABG OXYGEN SATURATION 97 % (94-100); ABG PCO2 70 MMHG (35-45); ABG PO2 149 MMHG (79-93); ABG TCO2 44.9 MMOL/L (21.0-31.0)
[2021-06-26 11:03] LABS: INSPIRED O2 3 L; PATIENT TEMP 35.6; VENTILATOR NO
--- NOTE | 2021-06-26 11:23 | Occupational Therapy Eval ---
OT Evaluation-General/PLF Medical Diagnosis Admission Date Jun 25, 2021 at 17:20 Medical Diagnosis: COPD myopathy Onset Date: Jun 26, 2021 Therapy Diagnosis Therapy Diagnosis: Weakness, Decreased ADL skills Height/Weight Height (Feet): 5 Height (Inches): 4.00 Weight (Pounds): 130 Precautions Precautions/Isolations: Fall Prevention, Standard Precautions Weight Bear Status Weight Bearing Restriction: Weight Bearing/Tolerated Referral Physician: Trice Anderson DO Referral Reason: Activity Tolerance, Self Care, Evaluation/Treatment, Strengthening/ROM Medical History Pertinent Medical History: Alcoholism, CAD, COPD, GERD Additional Medical History Breast CA, anxiety, pneumonia Current History Pt. underwent femoral artery angioplasty and stenting on 06-13-21. Transferred to [facility] with severe debility and COPD myopathy on 06-25-21. Reviewed History: Yes Social History Current Living Status: Other Family (Patient states she lives with her daughter) Entry Into Home: Stairs Without Railing Steps Into Home: 2 ADL-Prior Level of Function SCALE: Activities may be completed with or without assistive devices. 0-Nzyjqogrqk-whutnim completes the activity by him/herself with no assistance from a helper. 5-Set-up or Clean-up Assistance-helper sets up or cleans up; patient completes activity. [place] assists only prior to or following the activity. 4-Supervision or Touching Assistance-helper provides verbal cues and/or touching/steadying and/or contact guard assistance as patient completes act ivity. Assistance may be provided throughout the activity or intermittently. 3-Partial/Moderate Assistance-helper does LESS THAN HALF the effort. [place] lifts, holds or supports trunk or limbs, but provides less than half the effort. 2-Substantial/Maximal Assistance-helper does MORE THAN HALF the effort. [place] lifts or holds trunk or limbs and provides more than half the effort. 3-Hrgakwpai-harlhx does ALL the effort. Patient does none of the effort to complete the activity. Or, the assistance of 2 or more helpers is required for the patient to complete the activity. If activity was not attempted, code reason: 7-Patient Refused. 9-Not Applicable-not attempted and the patient did not perform the activity before the current illness, exacerbation or injury. 10-Not Attempted due to Environmental Limitations-(lack of equipment, weather restraints, etc.). 88-Not Attempted due to Medical Conditions or Safety Concerns. ADL PLOF Comments Pt. states that she lives with her daughter and that her daughter "showers and bathes" her. Pt's chart suggests that pt. was independent prior. OT will talk with family to determine prior level. Self Care: Unknown Functional Cognition: Unknown OT Current Status Subjective Pt. does not indicate pain but does state that she is tired. Mental Status/Objective Patient Orientation: Unable to Assess Attachments: Oxygen Current Hand Dominance: Right Upper Extremity Strength 2+/5 hand strength. Decreased awareness and sequencing overall. OT did not test shoulder strength. ADL-Treatment Eating (QC): 88 Oral Hygiene (QC): 7 (Pt. declines because she has dentures. OT offers to assist with dentures, and pt. continues to decline.) Shower/Bathe Self (QC): 2 (Pt. "dabs" at chest, but OT washes all other parts while up on BSC.) Upper Body Dressing (QC): 88 Lower Body Dressing (QC): 2 (OT encourages pt. to don her own brief. Pt. holds it, but states that she can't. OT asks why. Pt. can't state why.) On/Off Footwear (QC): 2 Toileting Hygiene (QC): 2 Other Treatments Pt. up in chair. Demonstrates flat affect throughout session. OT encourages participation and involvement. Pt. does not make eye contact, and only assists with max encouragement. Stands with max assist and max cues to place feet on floor. Once in stance, pt. requires cues to move feet. Note "pushing" to one side. Poor awareness overall. Pt. back in bed with all needs met at end of session. Bed alarm set. Education OT Patient Education: Correct positioning, Exercise program, Modified ADL techniques, Progress toward Goal/Update tx plan, Purpose of tx/functional activities, Reviewed precautions, Rehab process, Transfer techniques Teaching Recipient: Patient Teaching Methods: Demonstration, Discussion Response to Teaching: Verbalize Understanding, Return Demonstration OT Attendant Lodging Facilities Goals Attendant Lodging Facilities Goals Time Frame: Jul 10, 2021 Eating (QC): 4 Oral Hygiene (QC): 4 Toileting Hygiene (QC): 4 Shower/Bathe Self (QC): 3 Upper Body Dressing (QC): 4 Lower Body Dressing (QC): 4 On/Off Footwear (QC): 4 1=Demonstrate adherence to instructed precautions during ADL tasks. 2=Patient will verbalize/demonstrate understanding of assistive devices/modifications for ADL. 3=Patient will improve strength/tolerance for activity to enable patient to perform ADL's. OT Education/Plan Problem List/Assessment Assessment: Decreased Activ Tolerance, Decreased Safety Aware, Decreased UE Strength, Dependent Transfers, Impaired Bed Mobility, Impaired Cognition, Impaired Coordination, Impaired Funct Balance, Impaired I ADL's, Impaired Self- Care Skills Discharge Recommendations Plan/Recommendations: Continue POC Therapy Discharge Recommendati: 24 Hour Supervision Treatment Plan/Plan of Care Treatment,Training & Education: Yes Patient would benefit from OT for education, treatment and training to promote independence in ADL's, mobility, safety and/or upper extremity function for ADL's. Plan of Care: ADL Retraining, Functional Mobility, UE Funct Exercise/Act Treatment Duration: Jul 10, 2021 Frequency: At least 5 of 7 days/Wk (IRF) Estimated Hrs Per Day: 1.5 hours per day Agreement: Yes Rehab Potential: Fair Time/GCodes Start Time: 10:00 Stop Time: 11:15 Total Time Billed (hr/min): 75 Billed Treatment Time 1, EVH x 15minutes, ADL x 60minutes NYA CUEVAS OT Jun 26, 2021 11:23
--- NOTE | 2021-06-26 11:54 | Discharge Summary ---
Diagnosis/Chief Complaint Date of Admission Jun 25, 2021 at 17:20 Date of Discharge Discharge Date: Jun 26, 2021 Discharge Diagnosis Assessment: Acute respiratory failure with CO2 narcosis prompting ICU transfer COPD myopathy Alcoholism Altered mental status Anxiety CAD Current smoking Hypertension Current hypoxia requiring supplemental oxygen PVD Urinary incontinence Breast cancer history Restless leg syndrome Neuropathy Chronic constipation Chronic diarrhea Hypothyroidism Renal artery stenosis Plan: Aggressive therapy Nicotine patch Supportive care Discharge Summary Discharge Physical Examination Allergies: Uncoded Allergies: Ling (Allergy, Unknown, 06/26/21) Vitals & I&Os Vital Signs Date Time Temp Pulse Resp B/P (MAP) Pulse Ox O2 Delivery O2 Flow Rate FiO2 06/26/21 11:38 25.00 06/26/21 09:09 100 Nasal Cannula 06/26/21 07:45 36.2 83 26 148/65 (92) Hospital Course Was the Problem List Reviewed?: Yes Hospital course: Pt had an overnight hospital course in inpatient rehab before she became more and more lethargic and ABG showed hypercapnia of 70. Pt was moved to the ICU promptly and EICU was consulted and BiPAP placed. Labs (last 24 hrs) Laboratory Tests 06/26/21 06:17: White Blood Count 15.9H, Red Blood Count 3.47L, Hemoglobin 10.8L, Hematocrit 36, Mean Corpuscular Volume 104H, Mean Corpuscular Hemoglobin 31, Mean Corpuscular Hemoglobin Concent 30L, Red Cell Distribution Width 12.9, Platelet Count 185, Mean Platelet Volume 12.8H, Immature Granulocyte % (Auto) 2, Neutrophils (%) (Auto) 81H, Lymphocytes (%) (Auto) 8L, Monocytes (%) (Auto) 9, Eosinophils (%) (Auto) 0, Basophils (%) (Auto) 0, Neutrophils # (Auto) 12.8H, Lymphocytes # (Auto) 1.2, Monocytes # (Auto) 1.4H, Eosinophils # (Auto) 0.0, Basophils # (Auto) 0.0, Immature Granulocyte # (Auto) 0.4H, Neutrophils % (Manual) 82, Lymphocytes % (Manual) 11, Monocytes % (Manual) 6, Eosinophils % (Manual) 1, Stomatocytes MODERATE, Blood Morphology Comment , Sodium Level 147H, Potassium Level 3.5L, Chloride Level 95L, Carbon Dioxide Level 42H, Anion Gap 10, Blood Urea Nitrogen 33H, Creatinine 0.71, Estimat Glomerular Filtration Rate 80, BUN/Creatinine Ratio 46, Glucose Level 100, Calcium Level 9.4, Corrected Calcium 9.8, Total Bilirubin 0.4, Aspartate Amino Transf (AST/SGOT) 19, Alanine Aminotransferase (ALT/SGPT) 28, Alkaline Phosphatase 54, Total Protein 5.8L, Albumin 3.5 06/26/21 10:30: Blood Gas Puncture Site R, Blood Gas Patient Temperature 35.6, Arterial Blood pH 7.40, Arterial Blood Partial Pressure CO2 70H, Arterial Blood Partial Pressure O2 149H, Arterial Blood HCO3 43*H, Arterial Blood Total CO2 44.9H, Arterial Bloo d Oxygen Saturation 97, Arterial Blood Base Excess 16.5H, Asad Test NA, Blood Gas Ventilator Setting NO, Blood Gas Inspired Oxygen 3 L Pending Labs Laboratory Tests 06/26/21 06:17: White Blood Count 15.9, Red Blood Count 3.47, Hemoglobin 10.8, Hematocrit 36, Mean Corpuscular Volume 104, Mean Corpuscular Hemoglobin 31, Mean Corpuscular Hemoglobin Concent 30, Red Cell Distribution Width 12.9, Platelet Count 185, Mean Platelet Volume 12.8, Immature Granulocyte % (Auto) 2, Neutrophils (%) (Auto) 81, Lymphocytes (%) (Auto) 8, Monocytes (%) (Auto) 9, Eosinophils (%) (Auto) 0, Basophils (%) (Auto) 0, Neutrophils # (Auto) 12.8, Lymphocytes # (Auto) 1.2, Monocytes # (Auto) 1.4, Eosinophils # (Auto) 0.0, Basophils # (Auto) 0.0, Immature Granulocyte # (Auto) 0.4, Neutrophils % (Manual) 82, Lymphocytes % (Manual) 11, Monocytes % (Manual) 6, Eosinophils % (Manual) 1, Stomatocytes MODERATE, Blood Morphology Comment , Sodium Level 147, Potassium Level 3.5, Chl oride Level 95, Carbon Dioxide Level 42, Anion Gap 10, Blood Urea Nitrogen 33, Creatinine 0.71, Estimat Glomerular Filtration Rate 80, BUN/Creatinine Ratio 46, Glucose Level 100, Calcium Level 9.4, Corrected Calcium 9.8, Total Bilirubin 0.4, Aspartate Amino Transf (AST/SGOT) 19, Alanine Aminotransferase (ALT/SGPT) 28, Alkaline Phosphatase 54, Total Protein 5.8, Albumin 3.5 06/26/21 10:30: Blood Gas Puncture Site R, Blood Gas Patient Temperature 35.6, Arterial Blood pH 7.40, Arterial Blood Partial Pressure CO2 70, Arterial Blood Partial Pressure O2 149, Arterial Blood HCO3 43, Arterial Blood Total CO2 44.9, Arterial Blood Oxygen Saturation 97, Arterial Blood Base Excess 16.5, Asad Test NA, Blood Gas Ventilator Setting NO, Blood Gas Inspired Oxygen 3 L Discharge Home Medications: Active Scripts Active Instructions to patient/family Please see electronic discharge instructions given to patient. Diagnosis/Problems Diagnosis/Problems (1) COPD (chronic obstructive pulmonary disease) SANJAY GARCIA DO Jun 26, 2021 11:54
--- NOTE | 2021-06-26 12:16 | Therapy Team Discharge Summary ---
Therapy Discharge Summary Discharge Recommendations Date of Discharge Occupational Therapy Decreased Activ Tolerance, Decreased Safety Aware, Decreased UE Strength, Dependent Transfers, Impaired Bed Mobility, Impaired Cognition, Impaired Coordination, Impaired Funct Balance, Impaired I ADL's, Impaired Self-Care Skil ls Speech-Language Pathology Patient is discharging to ICU7 due to decline in medical status and needed wa gher level of care. PT Detention Goals Professor Of Literature Goals PT Professor Of Literature Goals Time Frame: Jul 17, 2021 Roll Left to Right (QC): 3 Sit to Lying (QC): 3 Lying-Sitting on Side/Bed(QC): 3 Sit to Stand (QC): 4 Chair/Ltg-bn-Cpbea Xfer(QC): 4 Car Transfer (QC): 3 Does the Patient Walk: Yes Walk 10 feet (QC): 4 Walk 10ft-Uneven Surface(QC): 4 Walk 50ft with 2 Turns (QC): 4 Walk 150 ft (QC): 88 Wheel 50 feet with 2 turns (QC: 4 1 Step (curb) (QC): 3 4 Steps (QC): 3 12 Steps (QC): 88 Picking up an Object (QC): 88 OT Professor Of Literature Goals Detention Goals Time Frame: Jul 10, 2021 Eating (QC): 4 Oral Hygiene (QC): 4 Shower/Bathe Self (QC): 3 Upper Body Dressing (QC): 4 Lower Body Dressing (QC): 4 On/Off Footwear (QC): 4 Toileting Hygiene (QC): 4 Toilet/Commode Transfer (QC): 4 1=Demonstrate adherence to instructed precautions during ADL tasks. 2=Patient will verbalize/demonstrate understanding of assistive devices/modifications for ADL. 3=Patient will improve strength/tolerance for activity to enable patient to perform ADL's. Speech Detention Goals Detention Goals Patient will improve cognitive-communication abilities so that she may require decreased assist for daily tasks. CALIN RODRIGUEZ Jun 26, 2021 12:16
--- NOTE | 2021-06-26 13:29 | Therapy Team Discharge Summary ---
Therapy Discharge Summary Discharge Recommendations Date of Discharge Jun 26, 2021 at 12:10 Occupational Therapy Pt. seen this date for initial evaluation. Pt. discharged to ICU due to change in medical status. Therefore, no goals were able to be addressed. Decreased Activ Tolerance, Decreased Safety Aware, Decreased UE Strength, Dependent Transfers, Impaired Bed Mobility, Impaired Cognition, Impaired Coordination, Impaired Funct Balance, Impaired I ADL's, Impaired Self-Care Skills PT Core Manager Goals Core Manager Goals PT Core Manager Goals Time Frame: Jul 17, 2021 Roll Left to Right (QC): 3 Sit to Lying (QC): 3 Lying-Sitting on Side/Bed(QC): 3 Sit to Stand (QC): 4 Chair/Kfe-rv-Nwcrc Xfer(QC): 4 Car Transfer (QC): 3 Does the Patient Walk: Yes Walk 10 feet (QC): 4 Walk 10ft-Uneven Surface(QC): 4 Walk 50ft with 2 Turns (QC): 4 Walk 150 ft (QC): 88 Wheel 50 feet with 2 turns (QC: 4 1 Step (curb) (QC): 3 4 Steps (QC): 3 12 Steps (QC): 88 Picking up an Object (QC): 88 OT Detention Goals Detention Goals Time Frame: Jul 10, 2021 Eating (QC): 4 (not met) Oral Hygiene (QC): 4 (not met) Shower/Bathe Self (QC): 3 (not met) Upper Body Dressing (QC): 4 (not met) Lower Body Dressing (QC): 4 (not met) On/Off Footwear (QC): 4 (not met) Toileting Hygiene (QC): 4 (not met) Toilet/Commode Transfer (QC): 4 (not met) 1=Demonstrate adherence to instructed precautions during ADL tasks. 2=Patient will verbalize/demonstrate understanding of assistive devices/modifications for ADL. 3=Patient will improve strength/tolerance for activity to enable patient to perform ADL's. Speech Detention Goals Detention Goals Patient will improve cognitive-communication abilities so that she may require decreased assist for daily tasks. NYA CUEVAS OT Jun 26, 2021 13:29
--- NOTE | 2021-06-26 13:59 | Progress Note ---
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 Pt has a PMH of breast cancer, anxiety COPD, and hypothyroidism. Upon speaking with the nurse she noted that the patient was having increased difficulty breathing and hypoxia at one point reaching an O2 saturation of 86%. An ABG and CXR were ordered. The CXR revealed no acute cardiopumonary process detected. The ABG revealed values of 7.4/70/149 and a significantly increased HCO3 of 43. The patient was severely hypercapnic and put on BiPAP, with the settings of rate 32, total volume 326ml, and PIP of 14, for better oxygenation. Upon entering the room she was laying in the right lateral recumbent position and appeared chronically ill in moderate respiratory distress. She was engaged with questioning for the first half of the interview but would only respond with one word responses. She began to fall asleep after each question getting to the point where she was unresponsive and sleeping. It was decided under the direction of Dr. Anderson that this patient be transferred to ICU 7. TRICE ANDERSON DO 06/27/21 0529: Supervisory-Addendum Brief Verification & Attestation Participated in pt care: history, MDM, physical Personally performed: exam, history, MDM, supervision of care Care discussed with: Medical Student Procedures: n/a Results interpretation: Verified all documentation Verification and Attestation of Medical Student E/M Service A medical student performed and documented this service in my presence. I reviewed and verified all information documented by the medical student and made modifications to such information, when appropriate. I personally performed the physical exam and medical decision making. Trice Anderson, Jun 27, 2021,05:29 NUNO MCCANN STUDENT Jun 26, 2021 13:59 TRICE ANDERSON DO Jun 27, 2021 05:29
[2021-06-27] MEDS ORDERED: MORP20SO PO (11:41)
[2021-06-27] MEDS ORDERED: LORA2ORA PO (11:41)
--- NOTE | 2021-06-27 12:51 | Therapy Team Discharge Summary ---
Therapy Discharge Summary Discharge Recommendations Date of Discharge Jun 26, 2021 at 12:10 Physical Therapy Patient came to rehab with COPD myopathy. Upon evaluation patient performed bed mobility with dependence, supine <-> sit dependent, sit <-> stand max assist, transfers max assist, car transfer dependent, ambulated 6' in the parallel bars with min assist for balance, not able to propel a manual WC. Patient had to leave rehab the morning of evaluation due to medical issues. She will be discharged from PT at this time. Occupational Therapy Decreased Activ Tolerance, Decreased Safety Aware, Decreased UE Strength, Dependent Transfers, Impaired Bed Mobility, Impaired Cognition, Impaired Coordination, Impaired Funct Balance, Impaired I ADL's, Impaired Self-Care Skills PT [facility] Goals Recruitment Advertising Manager Goals PT Recruitment Advertising Manager Goals Time Frame: Jul 17, 2021 Roll Left to Right (QC): 3 Sit to Lying (QC): 3 Lying-Sitting on Side/Bed(QC): 3 Sit to Stand (QC): 4 Chair/Ehy-oy-Dozgg Xfer(QC): 4 Car Transfer (QC): 3 Does the Patient Walk: Yes Walk 10 feet (QC): 4 Walk 10ft-Uneven Surface(QC): 4 Walk 50ft with 2 Turns (QC): 4 Walk 150 ft (QC): 88 Wheel 50 feet with 2 turns (QC: 4 1 Step (curb) (QC): 3 4 Steps (QC): 3 12 Steps (QC): 88 Picking up an Object (QC): 88 OT Recruitment Advertising Manager Goals Recruitment Advertising Manager Goals Time Frame: Jul 10, 2021 Eating (QC): 4 (not met) Oral Hygiene (QC): 4 (not met) Shower/Bathe Self (QC): 3 (not met) Upper Body Dressing (QC): 4 (not met) Lower Body Dressing (QC): 4 (not met) On/Off Footwear (QC): 4 (not met) Toileting Hygiene (QC): 4 (not met) Toilet/Commode Transfer (QC): 4 (not met) 1=Demonstrate adherence to instructed precautions during ADL tasks. 2=Patient will verbalize/demonstrate understanding of assistive devices/modifications for ADL. 3=Patient will improve strength/tolerance for activity to enable patient to perform ADL's. Speech Recruitment Advertising Manager Goals [facility] Goals Patient will improve cognitive-communication abilities so that she may require decreased assist for daily tasks. CRISTINA GOMES PT Jun 27, 2021 12:51
== END 2021-06-26 12:10 | disposition short-term general hospital (02) | DRG 91 ==
PROVIDERS: ADMIT Internal Medicine; ATTEND Internal Medicine
DX: G72.89 Other specified myopathies (principal); J96.01 Acute respiratory failure with hypoxia; J44.9 Chronic obstructive pulmonary disease, unspecified; E03.9 Hypothyroidism, unspecified; F41.9 Anxiety disorder, unspecified; I70.1 Atherosclerosis of renal artery; I10 Essential (primary) hypertension; F17.200 Nicotine dependence, unspecified, uncomplicated; G62.9 Polyneuropathy, unspecified; G25.81 Restless legs syndrome; K21.9 Gastro-esophageal reflux disease without esophagitis; M19.91 Primary osteoarthritis, unspecified site; F10.20 Alcohol dependence, uncomplicated; I73.9 Peripheral vascular disease, unspecified; R32 Unspecified urinary incontinence; K59.09 Other constipation; R19.7 Diarrhea, unspecified; Z87.01 Personal history of pneumonia (recurrent); Z85.3 Personal history of malignant neoplasm of breast
CPT/HCPCS: 36415; 71045; 80053; 82805; 85007; 85027; 94640; 94660; 94760

== ENCOUNTER 2021-06-26 11:24 | Inpatient (IN) | payer MEDICARE ==
[~2021-06-26 11:24] MED LIST changes: +ALPR1TAB7 PO; +AMLO-250 PO; +APIX2.5T PO; -CATHETER FLUSH 10 ML SYR IV PRN; +CEFP200T2 PO; +CLOP75TA69 PO; +FURO40TA4 PO; -HOLD METFORMIN - RECEIVED CONTRAST 20 ML VIAL IV SCH; +IBUP-2473 PO; -IOHEXOL 350 MG/ML 100 ML (OMNIPAQUE 350) VIAL IV ONE; +LEVO125T6 PO; +LOSA25TA41 PO; +METO50TA15 PO; +MTC10T PO; +MUPI22OI2 TP; -NS 100 ML (IVPB) BAG IV ONE; +PRD20T PO
[2021-06-26] MEDS ORDERED: ENOXAPARIN 40 MG/0.4 ML (LOVENOX) SYR SC SCH (12:00)
[2021-06-26] MEDS ORDERED: guaiFENesin/CODEINE (ROBITUSSIN AC) 10ML UDC PO PRN (13:15)
[2021-06-26] MEDS ORDERED: ONDANSETRON 4 MG (ZOFRAN) ORAL DISSOLVE TAB PO PRN (13:15)
[2021-06-26] MEDS ORDERED: DOCUSATE SODIUM 100 MG (COLACE) CAP PO PRN (13:15)
[2021-06-26] MEDS ORDERED: CALCIUM CARBONATE 500 MG (TUMS) TAB.CHEW PO PRN (13:15)
[2021-06-26] MEDS ORDERED: BISACODYL 10 MG SUPP (DULCOLAX) PR PRN ×2 (13:15→16:30)
[2021-06-26] MEDS ORDERED: diphenhydrAMINE 25 MG TAB (BENADRYL) PO PRN (13:15)
[2021-06-26] MEDS ORDERED: ACETAMINOPHEN 325 MG TABLET PO PRN (13:15)
[2021-06-26] MEDS ORDERED: LOPERAMIDE 2 MG (IMODIUM) TABLET PO PRN (13:15)
[2021-06-26] MEDS ORDERED: ALPRAZolam 1 MG (XANAX) TAB PO PRN (13:15)
[2021-06-26] MEDS ORDERED: MELATONIN 3 MG TABLET PO PRN (13:15)
[2021-06-26] MEDS ORDERED: LACTULOSE SYRUP 10GM/15ML (ENULOSE) 30ML UDC PO PRN (13:15)
[2021-06-26] MEDS ORDERED: FLEET ENEMA ADULT 1 EA BTL PR PRN (13:15)
[2021-06-26] MEDS ORDERED: METOCLOPRAMIDE 10 MG (REGLAN) TAB PO PRN (13:15)
[2021-06-26] MEDS ORDERED: NALOXONE 0.4 MG/ML 1 ML (NARCAN) VIAL IV PRN (13:15)
[2021-06-26] MEDS ORDERED: methylPREDNISolone 40 MG/ML (Solu-MEDROL) VIAL IV NR (13:45)
--- NOTE | 2021-06-26 13:45 | Tele-ICU Consult ---
History of Present Illness History of Present Illness Date Seen by Provider: Jun 26, 2021 Time Seen by Provider: 13:44 Date of Admission Allergies and Home Medications Allergies Uncoded Allergies: Codiene (Allergy, Unknown, 06/26/21) Past Medical/Social/Family Hx Immunizations Up To Date Tetanus Booster (TDap): Less Than 5 Years Hepatitis A: No Hepatitis B: No TB Skin Test: None Current Status Primary Language: French Review of Systems Constitutional: see HPI Sepsis Event Evaluation Height, Weight, BMI Height: 5'4.00" Weight: 130lbs. oz. 58.764912at; 23.33 BMI Method:Stated Exam Exam Patient acknowledged, consented, and participated in this virtual visit which was conducted using real time audio/video Vital Signs Date Time Temp Pulse Resp B/P (MAP) Pulse Ox O2 Delivery O2 Flow Rate FiO2 06/26/21 12:54 77 06/26/21 12:32 37.1 73 18 143/65 (91) 97 NIV Bilevel 25.00 Height & Weight Height: 5'4.00" Weight: 130lbs. oz. 58.084128tu; 23.33 BMI Method:Stated General Appearance: No Apparent Distress Assessment/Plan Assessment/Plan (Tele-ICU Physician , consultation) Available chart/ vitals / labs / Images reviewed H&P is from rehab notes Patient's information available about PMH, Shx, Fhx allergy reviewed in EMR. ROS as per chart and RN report 06/25 - admitted to rehab 76-year-old female pt who has a PMH of breast cancer, anxiety, COPD hypothyroid , pneumonia who presents to inpatient rehab due to severe debility from COPD myopathy 06/26- increased SOB - placed on BIPAP - transferred to ICU Now in ICU, hemodynamically stable on BIPAP 29/03 25% rr 20, tv 300-500 , Video assessment done using teleICU camera, rest of exam as per RN - diminished , no sigm wheezing Discussed with RN. Consultants: A/P Acute resp failure - probably AECOPD , will check BNP , await cxr - ? PNA , PTX , , less likely PE ( on Eliquis proph dose ) - cont NIPPV for now for WOB - will give one modest dose of steroid , otherwise will cont on prednisone as was in rehab, cont br-dilators - hold lasix until establish BP , and see BNP and cxr COPD , chronic hypercarbia and hypoxia myopathy - presumed chronic dz+ steroids - will add thiamine, check phos Plans in collaboration with bedside consultants and IM MDs. Discussed with RN to reach out if any questions or concerns A total of 25 minutes of critical care time was devoted to this patient today, required to treat and/or prevent further deterioration of critical care condition ( as above ) . HUGO KULKARNI MD Jun 26, 2021 13:45
[2021-06-26] MEDS ORDERED: RT-ALBUTEROL/IPRATROPIUM 3 ML (DUONEB) VIAL INH SCH (14:00)
--- NOTE | 2021-06-26 14:30 | Progress Note ---
NUNO MCCANN MED STUDENT 06/26/21 1430: Progress Note CC: acute COPD exacerbation HPI: This is Jeanine a 76yo female that was transferred to the ICU with the chief complaint of acute COPD exacerbation under the care of Dr. Anderson. Upon speaking with the nurse she noted that in inpatient rehabilitation unit the patient was having increased difficulty breathing and hypoxia before noon at one point reaching an O2 saturation of 86%. An ABG and CXR were ordered. The CXR revealed no acute cardiopulmonary process detected. The ABG revealed values of 7.4/70/149 and a significantly increased HCO3 of 43. The patient was severely hypercapnic and put on BiPAP, with the settings 14/5, 25%, rr20, tv 300-500. Upon entering the room she was laying in the right lateral recumbent position and appeared chronically ill in moderate respiratory distress. She was engaged w ith questioning for the first half of the interview but would only respond with one word responses. She began to fall asleep after each question getting to the point where she was unresponsive and sleeping. PMH: breast cancer, anxiety COPD, and hypothyroidism PSH/SH/FH; unable to obtain Allergies: codeine Medications: mupirocin, nicotine, dulcolax, thiamine, prednisone, miralax, metoprolol, eliquis, antacid, cefdinir, plavix, lasix, lactulose, synthroid, loperamide, losartan, melatonin, reglan, zofran, senna, norvasc, benedrly, robitusson, duoneb, naloxone, xanax ROS: Constitutional: chills and fatigue HEENT: headache, blurry vision, denied eye pain CV: denied chest pain, palpitations or edema Respiratory: had SOB but denies cough GI: denied nausea or vomiting Exam: Vitals: HR 77, RR 18, BP 143/65, O2 sat 97% on BiPAP General: chronically ill and in moderate respiratory distress CV:regular rate and rhythm, murmur present on auscultation, no gallops or rubs Respiratory: wheezing and crackles throughout bilateral lung andrew Skin: warm and dry, no rashes or lacerations Labs/Imaging: CXR: no acute cardiopulmonary process detected AB.4/70/149/43 WBC 15.9 Hgb 10.8 lactic acid 1.29 phosphorus 3.7 B-natriuretic peptide 43.1 Procalcitonin pending results Assessment/Plan: acute COPD exacerbation medication protocol continue supplemental O2 monitor labs/vitals/imaging anemia monitor symptoms and repeat labs leukocytosis control with antibiotics hypercapnia monitor continue supplemental O2 continue home medications TRICE ANDERSON DO 06/27/21 0530: Supervisory-Addendum Brief Verification & Attestation Participated in pt care: history, MDM, physical Personally performed: exam, history, MDM, supervision of care Care discussed with: Medical Student Procedures: n/a Results interpretation: Verified all documentation Verification and Attestation of Medical Student E/M Service A medical student performed and documented this service in my presence. I reviewed and verified all information documented by the medical student and made modifications to such information, when appropriate. I personally performed the physical exam and medical decision making. Trice Anderson, Jun 27, 2021,05:30 NUNO MCCANN MED STUDENT Jun 26, 2021 14:30 TRICE ANDERSON DO Jun 27, 2021 05:30
[2021-06-26] MEDS ORDERED: ALPRAZolam 0.5 MG (XANAX) TAB PO PRN (14:45)
--- NOTE | 2021-06-26 15:14 | Diagnostic Imaging Report ---
INDICATION: PICC line placement. TIME OF EXAM: 2:52 PM. COMPARISON: Correlation is made with the prior chest from earlier this same day. FINDINGS: The left upper extremity PICC line appears to have the tip overlying the upper SVC. The lungs are clear. No infiltrates are seen. There is no effusion or pneumothorax. There are surgical clips in the right axilla. IMPRESSION: Satisfactory PICC line placement. Dictated by: Dictated on workstation # [id number]
--- NOTE | 2021-06-26 16:26 | History & Physical ---
History of Present Illness HPI/Chief Complaint CC: CO2 Narcosis HPI: This is a 76yoWF who had just been admitted from [facility] yesterday afternoon for cute exacerbation of COPD and COPD myopathy who presents to the ICU with altered mental status, found to have CO2 Narcosis with hypercapnea of 70. ABG showed oxygen level of 149, so she will be placed on BiPAP to dissipate the CO2 narcosis and will be monitored closely. Chest X-ray will be reviewed along with sepsis work up. After work-up completed patient told nurse she wanted to be DNR and comfort care and did not want to be on the BiPAP mask again so she was moved down to fourth floor on comfort care protocol. Palliative care and spiritual care nursing care all witnessed patient oriented x3 and family in agreement with her decision. Source: RN/MD Exam Limitations: clinical condition Date Seen 06/26/21 Time Seen by a Provider: 11:00 Attending Physician Trice Anderson DO PCP Self,Flavio MOLINA Referring Physician Date of Admission Jun 26, 2021 at 12:09 Home Medications & Allergies Home Medications Reviewed patient Home Medication Reconciliation performed by pharmacy medication reconciliations copier and printer field technician and/or nursing. Patients Allergies have been reviewed. Allergies Allergies Uncoded Allergies Codiene ( Allergy, Unknown, 06/26/21) Past Crinozm-Kxhtso-Gxywww Hx Past Med/Social Hx: Reviewed Nursing Past Med/Soc Hx, Reviewed and Corrections made Patient Social History Marrital Status: single Employed/Student: retired Alcohol Use: Regular Use Smoking Status: Current Everyday Smoker Recent Hopitalizations: No Immunizations Up To Date Tetanus Booster (TDap): Less than 5yrs Seasonal Allergies Seasonal Allergies: No Past Medical History Surgeries: Gallbladder Respiratory: COPD, Emphysema, Pneumonia Cardiac: Hypertension Neurological: Neuropathy Restless leg syndrome Gastrointestinal: Gastroesophageal Reflux Musculoskeletal: Arthritis Endocrine: Hypothyroidsim Cancer: Breast Review of Systems Constitutional: see HPI Physical Exam Physical Exam Vital Signs Vital Signs - First Documented 06/26/21 06/26/21 12:32 13:00 Temp 37.1 Pulse 73 Resp 18 B/P (MAP) 143/65 (91) Pulse Ox 97 O2 Delivery NIV Bilevel O2 Flow Rate 25.00 FiO2 25 Capillary Refill : Height, Weight, BMI Height: 5'4.00" Weight: 130lbs. oz. 58.325898xh; 23.33 BMI Method:Stated General Appearance: No Apparent Distress, Chronically ill, Thin Respiratory: Accessory Muscle Use, Decreased Breath Sounds Cardiovascular: Regular Rate, Rhythm Results Results/Procedures Labs Patient resulted labs reviewed. Assessment/Plan Admission Diagnosis Assessment: CO2 narcosis transferred from inpatient rehab to ICU but now fourth floor to comfort care per patient request COPD with current smoking Alcoholism Plan: Transfer to fourth floor DNR Comfort care protocol Admission Status: Inpatient Order (span 2 midnights) Reason for Inpatient Admission: CO2 narcosis Diagnosis/Problems Diagnosis/Problems (1) Hypercapnia TRICE ANDERSON DO Jun 26, 2021 16:26
[2021-06-26] MEDS ORDERED: RT-ALBUTEROL/IPRATROPIUM 3 ML (DUONEB) VIAL INH PRN (16:30)
[2021-06-26] MEDS ORDERED: ACETAMINOPHEN 650 MG SUPP (TYLENOL) PR PRN (16:30)
[2021-06-26] MEDS ORDERED: SALIVA STIMULANT MOUTH SPRAY (BIOTENE) 1.5 OZ MM PRN (16:30)
[2021-06-26] MEDS ORDERED: ONDANSETRON 4 MG/2 ML (SDV) Z0FRAN IVP PRN (16:30)
[2021-06-26] MEDS ORDERED: ARTIFICAL TEARS 0.4 ML UNIT DOSE (REFRESH PLUS) OU PRN (16:30)
[2021-06-26] MEDS ORDERED: GLYCOPYRROLATE 0.2 MG/ML (ROBINUL) 2 ML VIAL IV PRN (16:30)
[2021-06-26] MEDS ORDERED: ATROPINE 1% OPHTHALMIC SOLN 2 ML SL PRN (16:30)
[2021-06-26] MEDS: LORazepam INJ 2 MG/ML (ATIVAN) VIAL IVP PRN (20:01)
[2021-06-26] MEDS: morphine INJ 4 MG/ML 1 ML (VIAL/SYRINGE) IV PRN (20:01)
[2021-06-26] MEDS ORDERED: SENNA W/DOCUSATE (SENOKOT S) TABLET PO SCH (21:00)
[2021-06-26] MEDS ORDERED: MUPIROCIN 2% OINT 22 GM (BACTROBAN) TUBE TOP SCH (21:00)
[2021-06-26] MEDS ORDERED: APIXABAN 2.5 MG (ELIQUIS) TABLET PO SCH (21:00)
[2021-06-26] MEDS ORDERED: amLODIPine 5 MG (NORVASC) TAB PO SCH (21:00)
[2021-06-26] MEDS ORDERED: meTOprolol TARTRATE 50 MG (LOPRESSOR) TAB PO SCH (21:00)
[2021-06-26] MEDS ORDERED: polyethylene glycoL POWDER 17 GM (MIRALAX) PACK PO SCH (21:00)
[2021-06-26] MEDS ORDERED: CEFDINIR 300 MG (OMNICEF) CAP PO SCH (21:00)
[2021-06-27] MEDS: morphine INJ 4 MG/ML 1 ML (VIAL/SYRINGE) IV PRN ×3 (04:58→14:06)
[2021-06-27] MEDS ORDERED: LEVOTHYROXINE 125 MCG (LEVOTHROID) TABLET PO SCH (06:30)
[2021-06-27] MEDS ORDERED: THIAMINE 100 MG (VITAMIN B-1) TAB PO SCH (07:00)
[2021-06-27] MEDS ORDERED: predniSONE 20 MG TAB PO SCH (07:00)
[2021-06-27] MEDS ORDERED: NICOTINE PATCH REMOVAL TP SCH (08:59)
[2021-06-27] MEDS ORDERED: NICOTINE 21 MG (NICODERM) PATCH TD SCH (09:00)
[2021-06-27] MEDS ORDERED: LOSARTAN 25 MG (COZAAR) TAB PO SCH (09:00)
[2021-06-27] MEDS ORDERED: CLOPIDOGREL 75 MG (PLAVIX) TABLET PO SCH (09:00)
[2021-06-27] MEDS ORDERED: FUROSEMIDE 40 MG (LASIX) TAB PO SCH (09:00)
[2021-06-27] MEDS ORDERED: MORP20SO PO (11:41)
[2021-06-27] MEDS ORDERED: LORA2ORA PO (11:41)
--- NOTE | 2021-06-27 11:42 | Discharge Summary ---
Diagnosis/Chief Complaint Date of Admission Jun 26, 2021 at 12:09 Date of Discharge Discharge Date: Jun 27, 2021 Discharge Diagnosis Assessment: CO2 narcosis transferred from inpatient rehab to ICU but now fourth floor to comfort care per patient request COPD with current smoking Alcoholism Plan: Transfer to fourth floor DNR Comfort care protocol Discharge Summary Discharge Physical Examination Allergies: Uncoded Allergies: Ling (Allergy, Unknown, 06/26/21) Vitals & I&Os Vital Signs Date Time Temp Pulse Resp B/P (MAP) Pulse Ox O2 Delivery O2 Flow Rate FiO2 06/27/21 15:16 36.1 94 38 105/86 96 High Flow N/C 4.00 06/26/21 13:00 25 General Appearance: Alert, Other (Drowsy) Hospital Course Was the Problem List Reviewed?: Yes Hospital Course: Brief hospital course after she was admitted to ICU for hypercapnia and CO2 narcosis from inpatient rehab. She did not want any aggressive care, she was placed on comfort care, sent to 4th floor and [facility] and Morphine and Ativan prescribed at [facility]. Labs (last 24 hrs) Laboratory Tests 06/26/21 13:30: Lactic Acid Level 1.29, Phosphorus Level 3.7, B-Type Natriuretic Peptide 43.1, Procalcitonin 0.04 Pending Labs Laboratory Tests 06/26/21 13:30: Lactic Acid Level 1.29, Phosphorus Level 3.7, B-Type Natriuretic Peptide 43.1, Procalcitonin 0.04 Discharge Home Medications: Active Scripts Active Lorazepam Intensol (Lorazepam) 2 Mg/1 Ml Oral.conc 1 Mg PO Q2H PRN Morphine Sulfate 20 Mg/5 Ml Solution 5 Mg PO Q3HR Instructions to patient/family Please see electronic discharge instructions given to patient. Diagnosis/Problems Diagnosis/Problems (1) Hypercapnia SANJAY GARCIA DO Jun 27, 2021 11:42
[2021-06-27] MEDS: LORazepam INJ 2 MG/ML (ATIVAN) VIAL IVP PRN (14:28)
[2021-06-27 15:16] VITALS: BP 105/86
== END 2021-06-27 15:15 | disposition hospice, home (50) | DRG 189 ==
LOC: ICU 12:09 → 4TH 17:50
PROVIDERS: ADMIT Internal Medicine; ATTEND Internal Medicine
PROC: 5A09357 Assistance with Respiratory Ventilation, Less than 24 Consecutive Hours, Continuous Positive Airway Pressure (ICD-10-PCS; principal; 2021-06-26)
DX: J96.01 Acute respiratory failure with hypoxia (principal); J44.1 Chronic obstructive pulmonary disease with (acute) exacerbation; J96.02 Acute respiratory failure with hypercapnia; F41.9 Anxiety disorder, unspecified; E03.9 Hypothyroidism, unspecified; R53.81 Other malaise; G72.9 Myopathy, unspecified; Z66 Do not resuscitate; F10.20 Alcohol dependence, uncomplicated; Z51.5 Encounter for palliative care; I10 Essential (primary) hypertension; G25.81 Restless legs syndrome; G62.9 Polyneuropathy, unspecified; M19.90 Unspecified osteoarthritis, unspecified site; F17.210 Nicotine dependence, cigarettes, uncomplicated; Z85.3 Personal history of malignant neoplasm of breast
CPT/HCPCS: 36415; 36569; 71045; 76937; 83605; 83880; 84100; 84145; 94640; 94660